=== PATIENT | female | born 1950 | race African-American/Black ===

== ENCOUNTER 2021-05-10 04:53 | Day surgery (SDC) | payer OTHER, BC ==
[2021-05-03 16:18] VITALS: BMI 25.3
[2021-05-10 09:29] VITALS: TEMP 98.4
[2021-05-10 10:13] VITALS: BP 118/56; PULSE 65
== END 2021-05-10 10:29 | disposition home or self-care (01) ==
LOC: JASU-ENDO 04:53
PROVIDERS: ATTEND Internal Medicine Gastroenterology
PROC: 0DBP8ZX Excision of Rectum, Via Natural or Artificial Opening Endoscopic, Diagnostic (ICD-10-PCS; 2021-05-10)
PROC: 0DBH8ZX Excision of Cecum, Via Natural or Artificial Opening Endoscopic, Diagnostic (ICD-10-PCS; principal; 2021-05-10 09:00)
DX: Z12.11 Encounter for screening for malignant neoplasm of colon (principal); D12.0 Benign neoplasm of cecum; K57.30 Diverticulosis of large intestine without perforation or abscess without bleeding; K52.9 Noninfective gastroenteritis and colitis, unspecified
CPT/HCPCS: 88305-TC

== ENCOUNTER 2022-03-07 04:31 | Day surgery (SDC) | payer OTHER, BC ==
[2022-03-06 14:22] VITALS: BMI 25.9
[2022-03-07 13:27] VITALS: TEMP 98
[2022-03-07 14:21] VITALS: BP 148/70; PULSE 66; RESP 16
== END 2022-03-07 14:00 | disposition home or self-care (01) ==
LOC: JASU-ENDO 04:31
PROVIDERS: ATTEND Internal Medicine Gastroenterology
PROC: 0DB78ZX Excision of Stomach, Pylorus, Via Natural or Artificial Opening Endoscopic, Diagnostic (ICD-10-PCS; 2022-03-07)
PROC: 0DB98ZX Excision of Duodenum, Via Natural or Artificial Opening Endoscopic, Diagnostic (ICD-10-PCS; principal; 2022-03-07 12:00)
DX: K21.00 Gastro-esophageal reflux disease with esophagitis, without bleeding (principal); K44.9 Diaphragmatic hernia without obstruction or gangrene; K29.40 Chronic atrophic gastritis without bleeding; K29.50 Unspecified chronic gastritis without bleeding; B96.81 Helicobacter pylori [H. pylori] as the cause of diseases classified elsewhere
CPT/HCPCS: 88305-TC; 88341-TC; 88342-TC